=== PATIENT | male | born 1955 | race Native Hawaiian/Other Pacific Islander ===

== ENCOUNTER 2022-04-25 07:41 | Emergency (ER) | payer OTHER ==
[~2022-04-25] VITALS: Ht 180.3 cm; Wt 70.3 kg
[2022-04-25 07:45] VITALS: TEMP 97.2
[2022-04-25 08:55] VITALS: BP 154/62
== END 2022-04-25 08:55 | disposition home or self-care (01) ==
LOC: ED 07:41
DX: M46.1 Sacroiliitis, not elsewhere classified (principal); M54.18 Radiculopathy, sacral and sacrococcygeal region
CPT/HCPCS: 96372; 99283; J1885; J2930

== ENCOUNTER 2022-05-13 07:13 | Outpatient (CLI) | payer OTHER ==
[2022-05-13 07:43] LABS: PLATELET COUNT 252 K/uL (142-355)
[2022-05-13 08:05] LABS: POTASSIUM 4.2 mmol/L (3.6-5.2)
== END 2022-05-13 20:28 | disposition home or self-care (01) ==
LOC: LABW 07:13
PROVIDERS: ATTEND Internal Medicine Clinical Cardiac Electrophysiology
DX: I48.0 Paroxysmal atrial fibrillation (principal); Z79.899 Other long term (current) drug therapy
CPT/HCPCS: 36415; 80053; 84439; 84443; 85027

== ENCOUNTER 2022-06-11 17:02 | Outpatient (CLI) | payer OTHER | END 2022-06-11 23:59 | disposition home or self-care (01) | LOC: RAD 17:02 | PROVIDERS: ATTEND Internal Medicine | DX: M54.89 Other dorsalgia (principal); M25.552 Pain in left hip; M25.551 Pain in right hip; W19.XXXA Unspecified fall, initial encounter ==

== ENCOUNTER 2022-06-12 11:11 | Outpatient (CLI) | payer OTHER | END 2022-06-12 18:58 | disposition home or self-care (01) | LOC: CT 11:11 | PROVIDERS: ATTEND Internal Medicine | DX: M54.59 Other low back pain (principal); M51.36 Other intervertebral disc degeneration, lumbar region; W19.XXXA Unspecified fall, initial encounter ==

== ENCOUNTER 2022-11-27 09:19 | Outpatient (CLI) | payer OTHER ==
[2022-11-27 09:57] LABS: POTASSIUM 4.9 mmol/L (3.6-5.2)
== END 2022-11-27 19:04 | disposition home or self-care (01) ==
LOC: LABW 09:19
PROVIDERS: ATTEND Nurse Practitioner Family
DX: I48.0 Paroxysmal atrial fibrillation (principal)
CPT/HCPCS: 36415; 80053; 84443

== ENCOUNTER 2022-12-15 14:41 | Outpatient (CLI) | payer OTHER | END 2022-12-15 19:11 | disposition home or self-care (01) | LOC: RESP 14:41 | PROVIDERS: ATTEND Nurse Practitioner Family | DX: I48.0 Paroxysmal atrial fibrillation (principal); Z79.899 Other long term (current) drug therapy ==